=== PATIENT | male | born 1960 | race Caucasian/White ===

== ENCOUNTER 2020-04-29 12:04 | Emergency (ER) | payer OTHER, SELFPAY ==
[2020-04-29 12:09] VITALS: BP 146/71; PULSE 98; RESP 20; TEMP 36.4; O2SAT 92
--- NOTE | 2020-04-29 12:18 | ED.GENADUL_ITS ---
Discharge Plan Disposition Patient Disposition: HOME Condition: Improving Discharge Details Clinical Impression: Pacemaker reprogramming/check Primary Care Provider: None,None ED Provider: Alberto Villarreal Home Meds and New Rx's Prescriptions: Continued cholecalciferol (vitamin D3) 125 mcg (5,000 unit) capsule 125 mcg PO DAILY RF: 0 coenzyme Q10 100 mg tablet 100 mg PO DAILY RF: 0 cyclobenzaprine 10 mg tablet 10 mg PO HS RF: 0 iron 18 mg tablet 18 mg PO DAILY RF: 0 Lactobacillus acidophilus 10 billion cell capsule PO RF: 0 lutein 20 mg tablet 20 mg PO DAILY RF: 0 magnesium chloride 64 mg tablet,delayed release (DR/EC) 64 mg PO DAILY RF: 0 nicotine (polacrilex) 4 mg mini lozenge 4 mg BC Q8H PRNRF: 0 omeprazole 20 mg tablet,delayed release (DR/EC) 20 mg PO DAILY RF: 0 ramelteon 8 mg tablet 8 mg PO QHS RF: 0 spironolactone 25 mg tablet 25 mg PO DAILY RF: 0 tiotropium bromide 18 mcg capsule, w/inhalation device 1 cap IH DAILY RF: 0 metoprolol succinate [Toprol XL] 50 mg tablet extended release 24 hr 50 mg PO DAILY RF: 0 torsemide 20 mg tablet 20 mg PO DAILY RF: 0 tramadol 50 mg tablet 50 mg PO DAILY RF: 0 Discharge Instructions Additional Instructions: Your pacemaker check was unremarkable. Please follow-up with [facility] cardiology as discussed with them. Return to the emergency department for any acute concerns. Medical Decision Making 59-year-old male who is undergoing radiation therapy for lung mass. He has a history of ischemic cardiomyopathy and VT s/p implantation of a [employer] single lead, dual coil ICD in Jul 2014. He was referred by cardiology at [facility] for pacemaker check following radiation treatment. It was unable to be arranged in the outpatient setting. He has no other acute complaints. [employer] pacemaker interrogation was performed and shows no evidence of shock terminated episodes. Consistent with unremarkable pacemaker check. Patient stable for discharge. HPI General Mode of arrival: ambulatory . Date/Time Provider Initiated Documentation: 04/29/20 12:04 . Limitations to Documentation: no limitations . Information obtained by: patient . History of Present Illness 59 year old M presents to the emergency department with the chief complaint of Here for pacemaker check, no other complaint, described as similar to prior episodes, No relieving factors improve symptom(s), No exacerbating factors reported . Patient notes no other symptoms.. Patient did receive the following treatments prior to arrival, none Related Data Home Medications Medication Instructions Recorded Confirmed Lactobacillus acidophilus 10 cell PO 04/20/20 04/20/20 billion cell capsule cholecalciferol (vitamin D3) 125 125 mcg PO DAILY 04/20/20 04/29/20 mcg (5,000 unit) capsule coenzyme Q10 100 mg tablet 100 mg PO DAILY 04/20/20 04/29/20 cyclobenzaprine 10 mg tablet 10 mg PO HS 04/20/20 04/29/20 iron 18 mg tablet 18 mg PO DAILY 04/20/20 04/29/20 lutein 20 mg tablet 20 mg PO DAILY 04/20/20 04/29/20 magnesium chloride 64 mg 64 mg PO DAILY 04/20/20 04/29/20 (magnesium chloride) tablet,delayed release metoprolol succinate 50 mg 50 mg PO DAILY 04/20/20 04/29/20 tablet,extended release 24 hr nicotine (polacrilex) 4 mg buccal 4 mg BC Q8H PRN 04/20/20 04/29/20 mini lozenge omeprazole 20 mg tablet,delayed 20 mg PO DAILY 04/20/20 04/29/20 release ramelteon 8 mg tablet 8 mg PO QHS 04/20/20 04/29/20 spironolactone 25 mg tablet 25 mg PO DAILY 04/20/20 04/29/20 tiotropium bromide 18 mcg capsule 1 cap IH DAILY 04/20/20 04/29/20 with inhalation device torsemide 20 mg tablet 20 mg PO DAILY 04/20/20 04/29/20 tramadol 50 mg tablet 50 mg PO DAILY 04/20/20 04/29/20 General Stated Complaint: GenMedical LORENZO: 4 Review of Systems Narrative: No chest pain or palpitations. [facility] Social History Smoking/Tobacco Use Status: Current every day Tobacco Type: cigars Alcohol Intake: current Alcohol Intake frequency: a few times a month Substance use type: does not use Current gender identity: male Exam Narrative Exam Narrative: GEN: awake, alert, oriented 3. Pleasant, well groomed, interactive. HEAD: Normocephalic, atraumatic ENT: Mucous membranes moist, oropharynx unremarkable, External ear exam unremarkable EYES: PERRL, EOMI NECK: Full ROM, no RENATO, no menigismus CHEST/RESP: Nontender, clear to auscultation bilateral CARDIOVASCULAR: Distant, RRR, no murmur, rub abigail. Neuro: Grossly normal neurologic exam, conversant, interactive. Psych: Speech fluent, thoughts congruent, affect normal Course Vital Signs Vital signs: Vital Signs Temperature 36.4 C L 04/29/20 12:09 Pulse 98 H 04/29/20 12:09 Respiratory Rate 04/29/20 12:09 Blood Pressure 146/71 H 04/29/20 12:09 Pulse Oximetry 92 L 04/29/20 12:09 Temperature 36.4 C L 04/29/20 12:09 Temperature Source Skin 04/29/20 12:09 Pulse 98 H 04/29/20 12:09 Respiratory Rate 04/29/20 12:09 Respiratory Effort Non-Labored 04/29/20 12:09 Blood Pressure 146/71 H 04/29/20 12:09 Blood Pressure Position Sitting 04/29/20 12:09 Pulse Oximetry 92 L 04/29/20 12:09 Oxygen Delivery Method Room Air 04/29/20 12:09 Oxygen Flow Rate 0 04/29/20 12:09 Pain Level 2 04/29/20 12:09
--- NOTE | 2020-04-29 12:31 | NUR.NOTE ---
Nursing Note: pacemaker interogated.
[2020-04-29 12:32] VITALS: RESP 16
== END 2020-04-29 12:42 | disposition home or self-care (01) ==
PROVIDERS: Emergency Provider Emergency Medicine
DX: I25.5 Ischemic cardiomyopathy (principal); I47.2 Ventricular tachycardia; Z95.810 Presence of automatic (implantable) cardiac defibrillator; W88.8XXA Exposure to other ionizing radiation, initial encounter; C34.90 Malignant neoplasm of unspecified part of unspecified bronchus or lung; Z45.02 Encounter for adjustment and management of automatic implantable cardiac defibrillator
CPT/HCPCS: 99281; 99283